=== PATIENT | female | born 1945 | race Two or more races ===

== ENCOUNTER 2018-07-28 19:49 | Inpatient (IN) | payer OTHER ==
[~2018-07-28] VITALS: Ht 160 cm; Wt 81.6 kg
[~2018-07-28 19:49] MED LIST: ALPRAZOLAM ER2 MG; CAMBIA50 MG; FLEXERIL10 MG PO; GABAPENTIN600 MG; LOSARTAN-HCTZ1 EAC2; METHYLPRED4 MG/DOSE- PO; PAROXETINE HCL40 MG; TRAMADOL HCL50 MG PO; XANAX2 MG
== END 2018-08-18 18:34 | disposition home health service (06) | DRG 579 ==
LOC: ER 19:49 → SEC-K 07-29 18:58 → MEDJ 07-29 18:58
PROVIDERS: ADMIT Internal Medicine Cardiovascular Disease
PROC: 07B50ZZ Excision of Right Axillary Lymphatic, Open Approach (ICD-10-PCS; principal; 2018-07-29)
PROC: BW24YZZ Computerized Tomography (CT Scan) of Chest and Abdomen using Other Contrast (ICD-10-PCS; 2018-07-29)
PROC: 3E0F7GC Introduction of Other Therapeutic Substance into Respiratory Tract, Via Natural or Artificial Opening (ICD-10-PCS; 2018-07-29)
PROC: 4A033R1 Measurement of Arterial Saturation, Peripheral, Percutaneous Approach (ICD-10-PCS; 2018-07-29)
PROC: 0T9B70Z Drainage of Bladder with Drainage Device, Via Natural or Artificial Opening (ICD-10-PCS; 2018-07-29)
PROC: 02HV33Z Insertion of Infusion Device into Superior Vena Cava, Percutaneous Approach (ICD-10-PCS; 2018-08-05)
PROC: BH02ZZZ Plain Radiography of Bilateral Breasts (ICD-10-PCS; 2018-08-12)
PROC: CW1N1ZZ Planar Nuclear Medicine Imaging of Whole Body using Technetium 99m (Tc-99m) (ICD-10-PCS; 2018-08-13)
PROC: 0HBV0ZZ Excision of Bilateral Breast, Open Approach (ICD-10-PCS; 2018-08-14)
PROC: C71L1ZZ Planar Nuclear Medicine Imaging of Upper Chest Lymphatics using Technetium 99m (Tc-99m) (ICD-10-PCS; 2018-08-14)
DX: C50.311 Malignant neoplasm of lower-inner quadrant of right female breast (principal); J80 Acute respiratory distress syndrome; J98.11 Atelectasis; K86.2 Cyst of pancreas; J90 Pleural effusion, not elsewhere classified; R92.0 Mammographic microcalcification found on diagnostic imaging of breast; E66.01 Morbid (severe) obesity due to excess calories; K76.0 Fatty (change of) liver, not elsewhere classified; Z74.01 Bed confinement status; E03.9 Hypothyroidism, unspecified; M51.26 Other intervertebral disc displacement, lumbar region; F41.8 Other specified anxiety disorders; E11.9 Type 2 diabetes mellitus without complications; I48.2 Chronic atrial fibrillation; Z79.4 Long term (current) use of insulin; Z79.01 Long term (current) use of anticoagulants; E86.0 Dehydration

== ENCOUNTER 2018-08-27 09:26 | Emergency (ER) | payer OTHER ==
[~2018-08-27] VITALS: Ht 165.1 cm; Wt 90.7 kg
== END 2018-08-27 18:39 | disposition home or self-care (01) ==
LOC: ER 09:26
DX: R41.0 Disorientation, unspecified (principal)

== ENCOUNTER 2018-09-09 06:58 | Inpatient (IN) | payer OTHER ==
[~2018-09-09] VITALS: Ht 162.6 cm; Wt 90.7 kg
[2018-09-09] MEDS ORDERED: LEVOXYL50 MCG PO (07:32)
[2018-09-09] MEDS ORDERED: ANASTROZOLE1 MG (07:33)
[2018-09-09] MEDS ORDERED: TOPROL XL50 M1 (07:33)
[2018-09-09] MEDS ORDERED: NEURONTIN600 MG (07:34)
[2018-09-09] MEDS ORDERED: HYZAAR 100-251 EACH (07:35)
[2018-09-09] MEDS ORDERED: PAROXETINE HCL40 MG (07:35)
[2018-09-09] MEDS ORDERED: BUPROPION HCL150 M1 (07:35)
[2018-09-09] MEDS ORDERED: GLIMEPIRIDE1 MG (07:36)
[2018-09-09] MEDS ORDERED: LASIX40 MG PO (07:36)
[2018-09-09] MEDS ORDERED: ZANTAC300 MG (07:36)
[2018-09-09] MEDS ORDERED: BACLOFEN20 MG (07:37)
[2018-09-09] MEDS ORDERED: WELLBUTRIN SR100 MG PO (07:38)
[2018-09-09] MEDS ORDERED: RESTORIL30 M1 PO (07:38)
[2018-09-09] MEDS ORDERED: XANAX XR1 MG (07:39)
--- NOTE | 2018-09-09 07:39 | NUR ---
640 AM SE RECIBE PACIENTE A LA UNIDAD DE CHEST PAIN CARDIOARRAESTO CONJUNTO CON PARAMEDICOS DANDO VENTILACION MANULA 100% SE ACTIVA CLAVE HUSSAIN SE COMIENZA LAS COMPRESIONES SE VENTILA SE JOSELUIS S/V BP 61/45 HR50 O260% RR 55 DR. GALLO ENTUBA PACIENTE OROTRAQUEAL CON TUBO #7.5CM SE CIONECTA A V/MEACNICO VT450 R18 PF 55 PEEP 5 FIO2 100% SE CANALIZA PAICENTE EN BRAZO ANTONIA BAJANDO DOPAMINE 400/250ML BAJANDO 20 SE MANTIEIEN OBSERVACION PO RCAMBIOS ENSU CONDICON.
--- NOTE | 2018-09-09 08:42 | NUR ---
SE RECIBE PTE DEL TURNO ANTERIOR EN KRISTEN CON BARANDAS ELEVADAS CON IVFS PATENTE, PRIYA DE EDEMA Y ERITEMA DOPAMINE 400MG/250ML AT 20ML/HR. CONECTA A MONITOR CARDIACO Y VENTILADOR MECANICO CON PARAMETROS VT450 R18 PF55 PEEP5 FI02 100%. CON EXTREMIDADES SUPERIORES RESTRINGIDAS. SE MANTIENE EN OBSERVACION.
--- NOTE | 2018-09-09 16:10 | NUR ---
3:00P- SE RECIBE PTE ALERTA CON PUPILAS REACTIVAS CON RESPUESTA A ESTIMUOLO VERBAL Y DE DOLOR EN CAMA CON BARANDAS ELEVADAS POR SEGURIDAD EN POSICION SEMI-SENTADA EN LA UNIDAD DE DOLOR DE PECHO. CONECTADA A MONITOR CARDIACO, OXIMETRIA DE PULSO Y ASISTIDA RESPIRATORIAMENTE POR UN VENTILADOR MECANICO CON TUBO OROTRAQUEAL 7.5, EL CUAL PRESENTA LOS SIGUIENTES PARAMETROS:VT:450, MODO:A/C,FIO2:50%, PEEP:4 Y RR:14. RECIBIENDO POR VENOPUNCION EN BRAZO ANTONIA IV'S 0.9 BAJANDO A KVO Y DOPAMINA 400MCG/D5W 250ML BAJANDO A 20ML/HR. ABDOMEN BLANDO A LA PALPACION Y PERISTALSIS PRESENTE. PTE ORINA ESPONTANEO. SE OBSERVA VENDAJE EN TALONES DE AMBOS PIES, LIMPIO Y SECO. AMBAS EXTREMIDADES SUPERIORES RESTRINGIDAS. SE ASHISH A PTE EN CAMA CON BARANDAS ELEVADAS POR SEGURIDAD Y SE MANTIENE EN OBSERVACION POR CAMBIOS. 3:30PM- SE LLAMA A Y SE LE NOTIFICA QUE PTE SE ENCUENTRA COMBATIVA CON LA ENTUBACION OROTRAQUEAL. ORDENA ADMINISTRAR ATIVAN 1MG IV PUSH STAT Y COLOCAR EN SISTEMA ATIVAN 1MG QD 8HR PRN. SE ADMINISTRA MEDICAMENTO ESTRELLA ORDEN MEDICA.
== END 2018-09-30 01:54 | disposition expired | DRG 208 ==
LOC: ER 06:58 → ICU-2 18:17 → ICU 18:17
PROVIDERS: ADMIT Internal Medicine Cardiovascular Disease
PROC: 5A1945Z Respiratory Ventilation, 24-96 Consecutive Hours (ICD-10-PCS; principal; 2018-09-09)
PROC: 0BH17EZ Insertion of Endotracheal Airway into Trachea, Via Natural or Artificial Opening (ICD-10-PCS; 2018-09-09)
PROC: 3E0F7GC Introduction of Other Therapeutic Substance into Respiratory Tract, Via Natural or Artificial Opening (ICD-10-PCS; 2018-09-09)
PROC: BW24Y0Z Computerized Tomography (CT Scan) of Chest and Abdomen using Other Contrast, Unenhanced and Enhanced (ICD-10-PCS; 2018-09-10)
PROC: B020Y0Z Computerized Tomography (CT Scan) of Brain using Other Contrast, Unenhanced and Enhanced (ICD-10-PCS; 2018-09-10)
PROC: 0DH67UZ Insertion of Feeding Device into Stomach, Via Natural or Artificial Opening (ICD-10-PCS; 2018-09-10)
PROC: 3E0336Z Introduction of Nutritional Substance into Peripheral Vein, Percutaneous Approach (ICD-10-PCS; 2018-09-10)
PROC: 8E0ZXY6 Isolation (ICD-10-PCS; 2018-09-12)
PROC: 02HV33Z Insertion of Infusion Device into Superior Vena Cava, Percutaneous Approach (ICD-10-PCS; 2018-09-14)
PROC: 0W9930Z Drainage of Right Pleural Cavity with Drainage Device, Percutaneous Approach (ICD-10-PCS; 2018-09-15)
PROC: B54NZZZ Ultrasonography of Left Upper Extremity Veins (ICD-10-PCS; 2018-09-16)
PROC: 4A033R1 Measurement of Arterial Saturation, Peripheral, Percutaneous Approach (ICD-10-PCS; 2018-09-26)
DX: J96.21 Acute and chronic respiratory failure with hypoxia (principal); R65.21 Severe sepsis with septic shock; A41.89 Other specified sepsis; B37.1 Pulmonary candidiasis; J15.6 Pneumonia due to other Gram-negative bacteria; I48.1 Persistent atrial fibrillation; J90 Pleural effusion, not elsewhere classified; K86.2 Cyst of pancreas; E87.2 Acidosis; E87.3 Alkalosis; N39.0 Urinary tract infection, site not specified; J98.11 Atelectasis; I46.8 Cardiac arrest due to other underlying condition; Z79.01 Long term (current) use of anticoagulants; I95.89 Other hypotension; E03.8 Other specified hypothyroidism; C50.311 Malignant neoplasm of lower-inner quadrant of right female breast; E11.9 Type 2 diabetes mellitus without complications; Z79.4 Long term (current) use of insulin; E66.01 Morbid (severe) obesity due to excess calories; Z74.01 Bed confinement status; K76.0 Fatty (change of) liver, not elsewhere classified; E86.0 Dehydration; E87.8 Other disorders of electrolyte and fluid balance, not elsewhere classified; F07.81 Postconcussional syndrome; I11.9 Hypertensive heart disease without heart failure; M47.896 Other spondylosis, lumbar region; R23.0 Cyanosis; Z99.81 Dependence on supplemental oxygen; Z66 Do not resuscitate; E88.09 Other disorders of plasma-protein metabolism, not elsewhere classified; E87.6 Hypokalemia; E83.42 Hypomagnesemia
CPT/HCPCS: 70496